=== PATIENT | female | born 1975 | race Caucasian/White ===

== ENCOUNTER 2023-09-19 11:24 | Day surgery (SDC) | payer OTHER, SELFPAY ==
[2023-08-31 14:06] VITALS: BMI 30.4
[2023-09-13 11:22] VITALS: BMI 29.9
--- NOTE | 2023-09-16 14:03 | PM.HPGS ---
History of Present Illness History of Present Illness Consent: Risks, benefits, and alternatives have been discussed and questions answered. Patient agrees to proceed with procedure. Chief complaint: Z12.11 Screening neoplasm of the colon Narrative: Dilia Welsh is a 48 year old female Referred for colon cancer screening. 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 Cervical dysplasia Depression Fever blister GERD (gastroesophageal reflux disease) Migraine Surgical History Surgical History Hx of hysterectomy Family History Family History Mother Amyloidosis Hypertension Depression Leukemia High cholesterol Anxiety Father Hypertension Gout Renal cell carcinoma Rheumatoid arthritis Atrial fibrillation Alcoholism Sibling Cervical dysplasia Anxiety Depression Migraine Hypertension Grandparent Anxiety Grandparent Lung cancer Other Acute myocardial infarction Family history of alcoholism Family history of bipolar disorder Family history of malignant neoplasm of cervix Family history of primary malignant neoplasm of liver Social History Social History Smoking status: Never smoker Second hand tobacco smoke exposure: No Alcohol intake: current Alcohol use details: socially Substance use: never Substance use type: does not use Living arrangements: with family Spiritual care concerns: No Agree to blood products: Yes Meds Home Medications and Allergies Home Medications Medication Instructions Recorded Confirmed Type Saccharomyces boulardii 250 mg 250 mg PO BID 05/27/21 09/19/23 History capsule (Daily Probiotic (S. boulardii)) bupropion HCl 300 mg 24 hr tablet, 300 mg PO QAM 05/27/21 09/19/23 History extended release (Wellbutrin XL) solifenacin 10 mg tablet (Vesicare) 10 mg PO DAILY 05/27/21 09/19/23 History lifitegrast 5 % eye drops in a 1 drp EACH EYE BID 03/03/22 09/19/23 History dropperette (Xiidra) cholecalciferol (vitamin D3) 125 125 mcg PO DAILY 07/07/22 09/19/23 History mcg (5,000 unit) capsule mecobalamin (vitamin B12) 5,000 5,000 mcg PO DAILY 07/07/22 09/19/23 History mcg disintegrating tablet valacyclovir 1 gram tablet 1,000 mg PO DAILY PRN cold sores 07/08/23 09/19/23 Rx (Valtrex) #30 tabs estradiol 1 mg tablet (Estrace) 1 mg PO DAILY 09/13/23 09/19/23 History progesterone micronized 200 mg 200 mg PO DAILY 09/13/23 09/19/23 History capsule semaglutide (weight loss) 2.4 2.4 mg subcut WEEKLY 09/13/23 09/19/23 History mg/0.75 mL subcutaneous pen injector spironolactone 50 mg tablet 10 mg PO DAILY 09/13/23 09/19/23 History Allergies Allergy/AdvReac Type Severity Reaction Status Date / Time Sulfa (Sulfonamide Allergy Intermediate Hives Verified 09/19/23 11:43 Antibiotics) sulfamethizole Allergy Intermediate Hives Verified 09/19/23 11:43 trimethoprim Allergy Intermediate Hives Verified 09/19/23 11:43 Exam Const: General: alert Orientation/consciousness: patient oriented x3 Resp: Auscultation: clear to auscultation bilaterally Cardio: Rhythm: regular rhythm GI: GI Palp: Yes Soft to palpation and No Tenderness to palpation present (GI) Neuro: General: patient oriented x3 Assessment and Plan Assessment and plan (1) Colon cancer screening: Code(s): Z12.11 - Encounter for screening for malignant neoplasm of colon Status: Acute Assessment and Plan: Colonoscopy with possible biopsy or polypectomy or cautery or injection of substances.
--- NOTE | 2023-09-19 09:27 | WPDANESEPPF ---
Anes - Initial Pre Proc Eval Procedure: Operation Date: 09/19/23 13:00 Proposed Procedures p Screening Colonoscopy - Jesús Winn MD Date/Time: 09/19/23 09:27 Surgeon: Jesús Winn MD Pre Op Diagnosis: Z12.11 Screening neoplasm of the colon Patient Data Age: 48 Gender: F Height: 1.68 m Weight: 84 kg Allergies Allergy/AdvReac Type Severity Reaction Status Date / Time Sulfa (Sulfonamide Allergy Intermediate Hives Verified 09/19/23 11:43 Antibiotics) sulfamethizole Allergy Intermediate Hives Verified 09/19/23 11:43 trimethoprim Allergy Intermediate Hives Verified 09/19/23 11:43 Home Medications Medication Instructions Recorded Confirmed Type Saccharomyces boulardii 250 mg 250 mg PO BID 05/27/21 09/19/23 History capsule (Daily Probiotic (S. boulardii)) bupropion HCl 300 mg 24 hr tablet, 300 mg PO QAM 05/27/21 09/19/23 History extended release (Wellbutrin XL) solifenacin 10 mg tablet (Vesicare) 10 mg PO DAILY 05/27/21 09/19/23 History lifitegrast 5 % eye drops in a 1 drp EACH EYE BID 03/03/22 09/19/23 History dropperette (Xiidra) cholecalciferol (vitamin D3) 125 125 mcg PO DAILY 07/07/22 09/19/23 History mcg (5,000 unit) capsule mecobalamin (vitamin B12) 5,000 5,000 mcg PO DAILY 07/07/22 09/19/23 History mcg disintegrating tablet valacyclovir 1 gram tablet 1,000 mg PO DAILY PRN cold sores 07/08/23 09/19/23 Rx (Valtrex) #30 tabs estradiol 1 mg tablet (Estrace) 1 mg PO DAILY 09/13/23 09/19/23 History progesterone micronized 200 mg 200 mg PO DAILY 09/13/23 09/19/23 History capsule semaglutide (weight loss) 2.4 2.4 mg subcut WEEKLY 09/13/23 09/19/23 History mg/0.75 mL subcutaneous pen injector spironolactone 50 mg tablet 10 mg PO DAILY 09/13/23 09/19/23 History Patient hx anesthesia problems: none Family hx anesthesia problems: none Results Review: All pre-operative results and documents have been reviewed as part of the pre-operative evaluation. 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 Cervical dysplasia Depression Fever blister GERD (gastroesophageal reflux disease) Migraine Surgical History Surgical History Hx of hysterectomy Family History Family History Mother Amyloidosis Hypertension Depression Leukemia High cholesterol Anxiety Father Hypertension Gout Renal cell carcinoma Rheumatoid arthritis Atrial fibrillation Alcoholism Sibling Cervical dysplasia Anxiety Depression Migraine Hypertension Grandparent Anxiety Grandparent Lung cancer Other Acute myocardial infarction Family history of alcoholism Family history of bipolar disorder Family history of malignant neoplasm of cervix Family history of primary malignant neoplasm of liver Social History Social History Smoking status: Never smoker Second hand tobacco smoke exposure: No Alcohol intake: current Alcohol use details: socially Substance use: never Substance use type: does not use Living arrangements: with family Spiritual care concerns: No Agree to blood products: Yes Anes - Eval Final PreProcedure Day of Procedure 09/19/23 09:27 Patient weight: overweight Heart: regular rate and rhythm Lungs: clear to auscultation Airway: Mallampati scale class II Neurological: alert and oriented Last oral intake: >/= 8 hours ASA classification: II Emergent: no Anesthetic plan: proceed Anesthesia type and monitoring: general GIVS and standard monitoring Results Review: All pre-operative results and documents have been reviewed as part of the pre-operative evaluation. Informed Consent: The patient's anesthetic plan
[2023-09-19 11:52] VITALS: BP 110/74; PULSE 84; RESP 16; TEMP 37.2; O2SAT 100
[2023-09-19] MEDS: LACTATED RINGERS 1,000 ML 150 ML IV CONT (12:04)
[2023-09-19 13:21] VITALS: BP 95/69; PULSE 79; RESP 18; O2SAT 99
[2023-09-19 13:31] VITALS: BP 101/70; PULSE 67; RESP 18; O2SAT 100
[2023-09-19 13:41] VITALS: BP 103/67; PULSE 80; RESP 18; O2SAT 100
--- NOTE | 2023-09-19 13:48 | WPDANESPN ---
Anes - Prog Note Post-Op Date/Time: 09/19/23 13:48 Cardiovascular status: normal Respiratory status: normal Airway patency: baseline Mental status: baseline Post-Op hydration status: normal Vital Signs: Last Vital Signs Temp 37.2 C 09/19/23 11:52 Pulse 67 09/19/23 13:31 Resp 18 09/19/23 13:31 BP 101/70 09/19/23 13:31 Pulse Ox 100 09/19/23 13:31 O2 Del Method Room Air 09/19/23 13:31 Pain Score (VAS): 0 I/O: Intake & Output 09/18/23 09/19/23 09/19/23 23:59 07:59 15:59 Intake Total 400 Balance 400 Post-procedural complaints: none Patient Feedback: Patient satisfied with anesthetic care. Other Findings: Patient vital signs back to baseline. Patient denies nausea and vomiting. Patient's pain under control. Patient OK for discharge.
== END 2023-09-19 14:33 | disposition home or self-care (01) ==
PROVIDERS: PCP Family Medicine; Visit Provider Internal Medicine Gastroenterology
PROC: 0DJD8ZZ Inspection of Lower Intestinal Tract, Via Natural or Artificial Opening Endoscopic (ICD-10-PCS; CPT 45378; principal; 2023-09-19 13:00)
DX: Z12.11 Encounter for screening for malignant neoplasm of colon (principal)
CPT/HCPCS: 45378